=== PATIENT | male | born 1950 ===

== ENCOUNTER 2023-11-02 08:20 | Outpatient (CLI) | payer OTHER, SELFPAY ==
--- NOTE | 2023-11-02 08:30 | US_ITS ---
WS: [id number] RIGHT UPPER QUADRANT ULTRASOUND HISTORY: ELEVATION BILI/EVAL GB/BILE DUCT/RUQ COMPARISON: None available. Liver: 15.0 cm in length. Normal size liver and echogenicity. No bile duct dilatation or mass. Hypere choic mass just below the liver capsule in the LEFT lobe measures 1.7 x 1.4 x 1.2 cm. Portal Vein: Normal hepatopetal flow with monophasic waveform. Gallbladder: Distended gallbladder. There are a few small gallstones in the dependent gallbladder. No pericholecystic fluid. CBD: 0.3 cm Pancreas: Limited visualization. Right kidney: 9.9 cm in length. Normal size kidney. Simple cyst central kidney measures 2.0 x 2.1 x 2 .3 cm. Aorta and IVC: Unremarkable abdominal aorta and IVC. No ascites. US/US gall bladder [id number] IMPRESSION: 1. Cholelithiasis without acute cholecystitis. 2. 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
== END 2023-11-02 08:21 | disposition home or self-care (01) ==
LOC: RAD 08:20
PROVIDERS: Visit Provider Nurse Practitioner Family
DX: K80.20 Calculus of gallbladder without cholecystitis without obstruction (principal)
CPT/HCPCS: 76705